=== PATIENT | female | born 1975 | race Caucasian/White ===

== ENCOUNTER 2018-06-12 09:13 | Day surgery (SDC) | payer OTHER, SELFPAY ==
[2018-06-10 10:32] VITALS: BMI 33.4
[2018-06-12] VITALS (8 sets, daily range): BP systolic 114–133; BP diastolic 73–89; PULSE 67–86; RESP 12–16; TEMP 36–36.8; O2SAT 95–100; BMI 33.4
--- NOTE | 2018-06-12 | PATH_ITS ---
[facility] Accession Number: [id number] . 01 Material submitted: . ENDOMETRIAL CURETTINGS . 02 Diagnosis: Endometrial Curetting: Proliferative endometrium with focally disordered maturation and changes of glandular and stromal breakdown, negative for atypia. [facility]/06/15/2018 . 02 Electronically signed: . John Reinoso MD, Pathologist NPI- [id number] . 01 Gross description: . Received one formalin-filled container labeled with the patient's name and labeled endometrial curettings. The specimen consists of approximately a 1 cc aggregate of tissue, mucoid material, and blood, which is filtered, wrapped, and entirely submitted in one cassette. (DC:[id number]) /FRR . 02 Pathologist provided ICD-10: N93.9 . 02 CPT . 779680 Performed at: 01 [facility] [address], [place], [place] [id number] MD Luis Garces MD Phone: [phone] Performed at: 02 [facility] [address] [place], [place] [id number] MD Sapphire Godwin MD Phone: [phone]
[2018-06-12] MEDS: LACTATED RINGERS 1,000 ML 100 ML IV (09:26)
[2018-06-12] MEDS: APREPITANT 40 MG CAPSULE PO (10:21)
--- NOTE | 2018-06-12 10:34 | PM.PREOP ---
Pre-operative Note Interval Note Pre-op Check: Yes History & Physical exam performed today by Physician Changes: No
--- NOTE | 2018-06-12 10:35 | PM.HP.1 ---
History of Present Illness Date Patient Seen: 06/12/18 Time Patient Seen: 10:36 Chief complaint: d&c hysteroscopy 67557 Narrative: Patient is a 42-year-old 2 para 2 with menorrhagia here for a D&C hysteroscopy and NovaSure endometrial ablation Patient History Medical History Abnormal uterine bleeding (Acute) Cardiomyopathy (Resolved ~2016) Preeclampsia (Resolved ~2016) Surgical History History of third molar tooth extraction Status post delivery (01/16/15) Status post delivery (08/01/16) Status post myomectomy (~2011) Status post tonsillectomy and adenoidectomy (~1990) Status post tubal ligation (02/07/17) Family & Social History Social History: household members family Tobacco & Substance use: Smoking Status Never smoker Meds Home Medications Medication Instructions Recorded Confirmed Type ibuprofen [Advil] 200 mg PO Q5HP PRN #0 08/12/16 06/10/18 History Allergies Allergy/AdvReac Type Severity Reaction Status Date / Time No Known Drug Allergies Allergy Unverified 06/10/18 10:35 Exam Vital Signs (past 8 hours): - 06/12/18 09:27 Temperature 97.4 F L Pulse Rate 86 Respiratory Rate 16 Blood Pressure 123/86 Pulse Oximetry 100 Oxygen Delivery Method Room Air Narrative Exam Narrative: HEENT: No thyromegaly, no anterior cervical or supraclavicular lymphadenopathy. Lungs:Clear to auscultation bilaterally, no wheezes. Cardiovascular: Regular rate and rhythm, no murmurs, rubs, or gallops Abdomen: Well-healed Pfannenstielscars. No hepatosplenomegaly. No masses palpable. External genitalia: Normal Vagina: Normal Cervix: Normal Bimanual exam: 7]Week size uterus. Mobile. Rectal: No masses. Assessment & Plan (1) Menorrhagia with regular cycle: Current visit: Yes Status: Acute Plan: Assessment/Plan Narrative: Assessment: 42-year-old 2 para 2 with menorrhagia Normal ultrasound normal endometrial biopsy Plan: D&C hysteroscopy NovaSure endometrial ablation The risks, benefits, and alternatives to the procedure were explained to the patient. The risks including bleeding, infection, and uterine perforation. She understands these risks and agrees to proceed. A full PAR-Q held and consent form was signed
--- NOTE | 2018-06-12 10:44 | SUR.OPER ---
Lithotomy on padded OR bed, head on pillow, arms secured on padded arm boards at <90 degrees abduction. Legs secured in padded yellow fins stirrups.
[2018-06-12] MEDS: HYDROMORPHONE 2 MG INJ 0.5 MG IV ×2 (11:41→11:59)
[2018-06-12] MEDS: OXYCODONE/ACETAMINOPHEN 5/325 TABLET 1 TAB PO (12:02)
--- NOTE | 2018-06-13 10:16 | PM.GYNOP.1 ---
Operative Date/Time/Diagnoses Date of procedure: 06/12/18 Time of procedure: 11:15 Pre-op diagnosis: Menorrhagia Post-op diagnosis: same Procedure: Procedures Operation Date: 06/12/18 10:45 Actual Procedures Side Surgeon p D&C Hysteroscopy w/Novasure Ablation Gabriella Gar MD Indications: Menorrhagia Surgeon: Gabriella Gar Anesthesia Type: General (LMA) Operative Notes Findings: 8 week size anteverted uterus Both fallopian tube ostia observed Thickened endometrial lining Closure Type: not applicable Specimen(s): endometrial curettings Estimated blood loss (mL): 5 Blood products transfused: none Procedure in detail: After informed consent was obtained, the patient was taken to the operating room where she was placed in the dorsal supine position. After adequate LMA general anesthesia was achieved, she was placed in the dorsal lithotomy position, and prepped and draped in the usual sterile fashion. A time-out was performed. A bivalve speculum was placed into the vagina and the anterior lip of the cervix grasped with a single-tooth tenaculum. The cervical os was sequentially dilated to the # 7 Hegar dilator. The hysteroscope passed easily into the endometrial cavity with the findings noted above. The hysteroscope was removed. Sharp curettage was performed yielding a moderate amount of endometrial curettings. The uterus was measured from the internal os to the fundus of the uterus and measured 5.5 cm. This was set on the NovaSure catheter as well as the generator. The NovaSure catheter passed easily into the endometrial cavity. The catheter was opened. The width was 4.2 cm. This was set on the generator. This indicated a power of 127 w. The cervix was capped, and the cavity assessment was performed and passed. The cycle was initiated and lasted 84 sec. The NovaSure catheter was closed, the cervix was then capped, and the catheter was removed from the uterus. Single-tooth tenaculum was removed from the anterior lip of the cervix. The bivalve speculum was removed from the vagina. Sponge, lap, and instrument counts were correct x2. The patient tolerated the procedure well, and was taken to PACU in stable condition. Complications: none Post-operative Condition: stable Disposition: PACU Plan for aftercare: Home after recovery
== END 2018-06-12 12:23 | disposition home or self-care (01) ==
PROVIDERS: Family Provider Obstetrics & Gynecology; PCP Obstetrics & Gynecology; Visit Provider Obstetrics & Gynecology
PROC: 0U5B8ZZ Destruction of Endometrium, Via Natural or Artificial Opening Endoscopic (ICD-10-PCS; CPT 58563; principal; 2018-06-12 10:45)
DX: N93.9 Abnormal uterine and vaginal bleeding, unspecified (principal)
CPT/HCPCS: 58563; J1100; J1170; J1885; J2250; J2405; J2704; J3010; J8501

== ENCOUNTER → 2019-02-09 09:44 | Outpatient (CLI) | payer OTHER, SELFPAY ==
--- NOTE | 2019-02-09 09:46 | DI.MG.S_ITS ---
BILATERAL DIGITAL SCREENING MAMMOGRAM 3D/2D WITH CAD: 02/09/2019 CLINICAL: Routine screening. Family history of breast cancer. Comparison is made to exam dated: 06/23/2017 mammogram - [facility]. There are scattered fibroglandular elements in both breasts. Current study was also evaluated with a Computer Aided Detection (CAD) system. No significant masses, calcifications, or other findings are seen in either breast. There has been no significant interval change. IMPRESSION: NEGATIVE There is no mammographic evidence of malignancy. A 1 year screening mammogram is recommended. This exam was interpreted at Station ID: [id number]. NOTE: For mammograms, a report in lay terms will be sent to the patient. Approximately 15% of breast malignancies will not be visualized mammographically. In the management of a palpable breast mass, a negative mammogram must not discourage biopsy of a clinically suspicious lesion. Electronically Signed By: Ariel cdae/zachary:02/09/2019 17:29:39 letter sent: Normal Exam ACR BI-RADS Category 1: Negative 3341F
== END ==
PROVIDERS: Visit Provider Obstetrics & Gynecology
DX: Z12.31 Encounter for screening mammogram for malignant neoplasm of breast (principal); Z80.3 Family history of malignant neoplasm of breast
CPT/HCPCS: 77063; 77067

== ENCOUNTER → 2019-04-16 07:58 | Outpatient (CLI) | payer OTHER, SELFPAY ==
[2019-04-16 09:13] LABS: Hematocrit 40.7 % (36-46); Mean Corpuscular HGB Conc 34.3 % (30-36); Mean Corpuscular Hemoglobin 31.5 PG (26-34); Mean Corpuscular Volume 91.7 fL (80-100); Platelet Count 284 X10^3/uL (150-400); Red Blood Cell Count 4.44 X10^6/uL (4.0-5.2); Red Cell Distribution Width 12.9 % (11.6-14.8); White Blood Cell Count 6.7 X10^3/uL (4.5-11.0)
[2019-04-16 09:32] LABS: Alanine Aminotransferase 22 IU/L (9-52); Albumin 4.4 g/dL (3.5-5.0); Albumin Globulin Ratio 1.4 (1.0-2.8); Alkaline Phosphatase 59 U/L (38-126); Aspartate Aminotransferase 25 IU/L (14-36); BUN Creatinine Ratio 15.7 (6-22); Bilirubin Total 0.6 mg/dL (0.2-1.3); Blood Urea Nitrogen 11 mg/dL (7-17); Calcium 9.4 mg/dL (8.4-10.2); Carbon Dioxide 28 mmol/L (22-32); Chloride 104 mmol/L (98-107); Cholesterol 178 mg/dL (140-199); Estimated Glomerular Filt Rate > 60.0 mL/min (>60); Globulin 3.1 g/dL (1.7-4.1); Glucose 98 mg/dL (70-100); HDL Cholesterol 70 mg/dL (40-60); HEMOLYSIS < 15 (0-50); LDL Cholesterol Calculated 96 mg/dL (<100); Potassium 3.5 mmol/L (3.4-5.1); Sodium 140 mmol/L (137-145); Total Protein 7.5 g/dL (6.3-8.2); Triglycerides 59 mg/dL (35-150)
== END ==
PROVIDERS: Visit Provider Nurse Practitioner Family
DX: Z00.00 Encounter for general adult medical examination without abnormal findings (principal); Z13.6 Encounter for screening for cardiovascular disorders
CPT/HCPCS: 36415; 80053; 80061; 85027

== ENCOUNTER → 2020-02-04 16:25 | Outpatient (CLI) | payer OTHER, SELFPAY ==
[2020-02-04 17:06] LABS: Add Manual Diff / Slide Review NO; Basophils Absolute Auto 100 /uL (0-100); Basophils Percent Auto 0.6 % (0-2); Eosinophils Absolute Auto 200 /uL (0-450); Eosinophils Percent Auto 1.7 % (2-4); Hemoglobin 13.5 g/dL (12.0-16.0); Lymphocytes Absolute Auto 2100 /uL (1100-4500); Lymphocytes Percent Auto 18.2 % (25-40); Mean Corpuscular HGB Conc 34.6 % (30-36); Mean Corpuscular Hemoglobin 31.3 PG (26-34); Mean Corpuscular Volume 90.3 fL (80-100); Monocytes Absolute Auto 900 /uL (0-900); Neutrophils Absolute Auto 8200 /uL (1500-7000); Neutrophils Percent Auto 71.5 % (50-75); Platelet Count 284 X10^3/uL (150-400); Red Blood Cell Count 4.32 X10^6/uL (4.0-5.2); Red Cell Distribution Width 13.1 % (11.6-14.8); White Blood Cell Count 11.4 X10^3/uL (4.5-11.0)
== END ==
PROVIDERS: PCP Nurse Practitioner Family; Referring Provider Nurse Practitioner Family; Visit Provider Nurse Practitioner Family
DX: R59.0 Localized enlarged lymph nodes (principal)
CPT/HCPCS: 36415; 85025

== ENCOUNTER → 2020-02-25 08:25 | Outpatient (CLI) | payer OTHER, SELFPAY ==
--- NOTE | 2020-02-25 08:26 | DI.MG.S_ITS ---
BILATERAL DIGITAL SCREENING MAMMOGRAM 3D/2D WITH CAD: 02/25/2020 CLINICAL: Routine screening. Family history of breast cancer. Comparison is made to exams dated: 02/09/2019 mammogram and 06/23/2017 mammogram - [facility]. There are scattered fibroglandular elements in both breasts. Current study was also evaluated with a Computer Aided Detection (CAD) system. No significant masses, calcifications, or other findings are seen in either breast. There has been no significant interval change. IMPRESSION: NEGATIVE There is no mammographic evidence of malignancy. A 1 year screening mammogram is recommended. This exam was interpreted at Station ID: [id number]. NOTE: For mammograms, a report in lay terms will be sent to the patient. Approximately 15% of breast malignancies will not be visualized mammographically. In the management of a palpable breast mass, a negative mammogram must not discourage biopsy of a clinically suspicious lesion. Electronically Signed By: Nasim Mantilla M.D., jr/zachary:02/25/2020 09:57:14 letter sent: Normal Exam ACR BI-RADS Category 1: Negative 3341F
== END ==
PROVIDERS: PCP Nurse Practitioner Family; Referring Provider Obstetrics & Gynecology; Visit Provider Obstetrics & Gynecology
DX: Z12.31 Encounter for screening mammogram for malignant neoplasm of breast (principal); Z80.3 Family history of malignant neoplasm of breast
CPT/HCPCS: 77063; 77067

== ENCOUNTER → 2020-11-06 08:30 | Outpatient (CLI) | payer OTHER, SELFPAY ==
[2020-11-06 09:18] LABS: Hematocrit 38.3 % (36-46); Hemoglobin 13.3 g/dL (12.0-16.0); Mean Corpuscular HGB Conc 34.7 % (30-36); Mean Corpuscular Hemoglobin 31.2 PG (26-34); Mean Corpuscular Volume 89.9 fL (80-100); Platelet Count 260 X10^3/uL (150-400); Red Blood Cell Count 4.25 X10^6/uL (4.0-5.2); White Blood Cell Count 6.1 X10^3/uL (4.5-11.0)
[2020-11-06 10:23] LABS: Alanine Aminotransferase 16 IU/L (<35); Albumin Globulin Ratio 1.3 (1.0-2.8); Alkaline Phosphatase 53 U/L (38-126); Aspartate Aminotransferase 21 IU/L (14-36); BUN Creatinine Ratio 21.7 (6-22); Bilirubin Total 0.5 mg/dL (0.2-1.3); Blood Urea Nitrogen 15 mg/dL (7-17); Calcium 9.6 mg/dL (8.4-10.2); Carbon Dioxide 27 mmol/L (22-32); Chloride 105 mmol/L (98-107); Estimated Glomerular Filt Rate > 60.0 mL/min (>60); Glucose 91 mg/dL (70-100); HEMOLYSIS < 15 (0-50); Sodium 138 mmol/L (137-145)
== END ==
PROVIDERS: PCP Nurse Practitioner Family; Referring Provider Nurse Practitioner Family; Visit Provider Nurse Practitioner Family
DX: Z00.00 Encounter for general adult medical examination without abnormal findings (principal)
CPT/HCPCS: 36415; 80053; 85027

== ENCOUNTER → 2021-03-03 08:27 | Outpatient (CLI) | payer OTHER, SELFPAY ==
--- NOTE | 2021-03-03 08:28 | DI.MG.S_ITS ---
BILATERAL DIGITAL SCREENING MAMMOGRAM 3D/2D WITH CAD: 03/03/2021 CLINICAL: Routine screening. Family history of breast cancer. Comparison is made to exams dated: 02/25/2020 mammogram, 02/09/2019 mammogram, and 06/23/2017 mammogram - [facility]. There are scattered fibroglandular elements in both breasts. Current study was also evaluated with a Computer Aided Detection (CAD) system. No significant masses, calcifications, or other findings are seen in either breast. There has been no significant interval change. IMPRESSION: NEGATIVE There is no mammographic evidence of malignancy. A 1 year screening mammogram is recommended. This exam was interpreted at Station ID: [id number]. NOTE: For mammograms, a report in lay terms will be sent to the patient. Approximately 15% of breast malignancies will not be visualized mammographically. In the management of a palpable breast mass, a negative mammogram must not discourage biopsy of a clinically suspicious lesion. Electronically Signed By: Henry langston/zachary:03/05/2021 07:18:02 letter sent: Normal Exam ACR BI-RADS Category 1: Negative 3341F
== END ==
PROVIDERS: PCP Nurse Practitioner Family; Referring Provider Obstetrics & Gynecology; Visit Provider Obstetrics & Gynecology
DX: Z12.31 Encounter for screening mammogram for malignant neoplasm of breast (principal); Z80.3 Family history of malignant neoplasm of breast
CPT/HCPCS: 77063; 77067

== ENCOUNTER → 2022-11-21 10:30 | Outpatient (CLI) | payer OTHER, SELFPAY ==
[2022-11-21 10:50] LABS: Appearance Urine UA CLEAR; Bilirubin Urine UA NEGATIVE (NEGATIVE); Color Urine UA YELLOW; Glucose Urine UA NEGATIVE (Negative); Ketones Urine UA NEGATIVE (NEGATIVE); Leukocyte Esterase Urine UA NEGATIVE (NEGATIVE); Nitrite Urine UA NEGATIVE (Negative); Occult Blood Urine UA 2+ (Negative); Protein Urine UA NEGATIVE (Negative); Specific Gravity Urine UA 1.015 (1.000-1.035); Urobilinogen Urine UA 0.2 E.U./dL (0.2)
[2022-11-21 11:36] LABS: Bacteria Urine Many (>30); Culture Indicated Urine Cult Not Indicated; RBC Urine 1-5/HPF (0-5/HPF); Squamous Epithelial Cell Urine 0-1 /HPF (0-5/HPF); WBC Urine 1-5/HPF (0-5/HPF)
== END ==
PROVIDERS: PCP Registered Nurse Diabetes Educator; Referring Provider Obstetrics & Gynecology; Visit Provider Obstetrics & Gynecology
DX: N39.0 Urinary tract infection, site not specified (principal)
CPT/HCPCS: 81003; 81015

== ENCOUNTER 2024-02-03 09:37 | Day surgery (SDC) | payer OTHER, SELFPAY ==
[2024-02-03 09:57] VITALS: BP 122/78; PULSE 71; RESP 14; TEMP 36.3; O2SAT 100
[2024-02-03] MEDS: LACTATED RINGERS 1,000 ML 42 ML IV (10:04)
[2024-02-03] MEDS: ONDANSETRON 4 MG/2 ML INJ IV (10:27)
--- NOTE | 2024-02-03 10:34 | PM.HP.1 ---
History of Present Illness History of Present Illness Date Patient Seen: 02/03/24 Time Patient Seen: 10:34 Chief complaint: [facility] Narrative: grandmother of colon cancer. Pt has no symptoms. This is her first colon cancer screening [facility] Medical History Abnormal Pap smear of cervix (~2014) Abnormal uterine bleeding Acne (~1989) Allergies (~1989) BCC (basal cell carcinoma of skin) Cardiomyopathy (~2016) Chicken pox Fibroids (~2011) Folliculitis Foot pain (~2017) Heavy menstrual period (~1991) Human papilloma virus (~2013) Lymphadenopathy of right cervical region Painful menstrual periods PMDD (premenstrual dysphoric disorder) Preeclampsia (~2016) Seasonal allergic rhinitis (1989) Surgical History Anesthesia History of third molar tooth extraction Status post delivery (01/16/15) Status post delivery (08/01/16) Status post endometrial ablation (~2017) Status post myomectomy (~2011) Status post tonsillectomy and adenoidectomy (~1990) Status post tubal ligation (02/07/17) Family History Father Diabetes mellitus Mother Uterine cancer Grandmother Cancer Grandfather Cancer Chronic lymphocytic leukemia Grandmother Colon cancer Social History household members: family Smoking Status: Never smoker second hand exposure: No alcohol intake: current substance use type: does not use Meds Home Medications and Allergies Home Medications Medication Instructions Recorded Confirmed Type clindamycin phosphate 1 % topical 1 applic topical DAILY #60 mL 03/14/21 02/03/24 Rx solution aluminum chloride 20 % topical 1 applic topical 2XW PRN 03/18/23 02/03/24 Rx solution (Drysol) hyperhidrosis #35 mL loratadine-pseudoephedrine ER 10 1 tab PO DAILY #90 tabs 03/18/23 02/03/24 Rx mg-240 mg tablet,extended [id number] (Claritin-D 24 Hour) rhubarb root extract 4 mg tablet mg PO 03/18/23 03/18/23 History (Estroven Complete Menopause Relief) Allergies Allergy/AdvReac Type Severity Reaction Status Date / Time escitalopram AdvReac Intermediate irritibilit Verified 03/18/23 16:38 y Review of Systems Review of Systems ROS: Yes All systems reviewed with the patient and are negative except as otherwise documented Exam Vital Signs (past 8 hours): - 02/03/24 09:57 Temperature 97.3 F L Pulse Rate 71 Respiratory Rate 14 Blood Pressure 122/78 Pulse Oximetry 100 Oxygen Delivery Method Room Air Oxygen Delivery Method Room Air Const General: cooperative, healthy appearing and comfortable Nutritional Appearance: average body habitus [facility] Head: normocephalic and atraumatic Eyes General: appearance normal, both eyes and all related structures Neck Neck: trachea midline Resp Effort & Inspection: normal respiratory effort and able to speak in complete sentences Cardio Rate: regular rate Rhythm: regular rhythm GI Palpation: soft and No tender Skin General: turgor normal and No atrophy Neuro General: patient alert, patient awake and patient oriented x3 Cognition: normal cognition Psych Mental Status: mental status grossly normal Affect: normal affect Judgment: judgment good Assessment & Plan Assessment & Plan narrative: Colon cancer screening with colonoscopy and anesthesia Time-Based Coding :: [TOTAL MINUTES] spent with patient and on the chart (including review of chart, obtaining history, exam, reviewing outside data, placing orders, documenting exam and treatment plan, and counseling patient) on [DATE].
--- NOTE | 2024-02-03 11:22 | PM.OP.COLON ---
Operative Date/Time/Diagnoses Date of procedure: 02/03/24 Time of procedure: 11:22 Pre-op diagnosis: Colon cancer screening Post-op diagnosis: same Procedure & Clinicians Study performed: Colonoscopy with anesthesia Same procedure as scheduled: Yes Indications: Colon cancer screening Surgeon: Rosanne Rodriguez Procedure Notes Procedure in detail: Preop diagnosis: Colon cancer screening Postop diagnosis: Same Operative procedure: Colonoscopy with anesthesia Surgeon: Jessica Rodriguez MD Findings: Normal colonoscopy. No polyps, no diverticulosis Procedure: Patient placed in lateral position. Rectal exam performed showing normal tone no masses. Colonoscope inserted into the rectum and advanced to ileocecal valve with minimal difficulty. Insufflation extraction of the scope and the above findings. Retroflex was included in the rectum. Impression: Normal colonoscopy. No polyps, no diverticulosis. Plan: Repeat colonoscopy in 10 years unless otherwise indicated by change in clinical condition Specimen(s): none sent Complications: none Post-procedure Recommendations: Colonoscopy in 10 years Follow up: as needed Disposition: PACU
[2024-02-03 11:24] VITALS: BP 107/61; PULSE 88; RESP 17; TEMP 36.6; O2SAT 100
[2024-02-03 11:29] VITALS: BP 127/92; PULSE 80; RESP 14; O2SAT 98
[2024-02-03 11:35] VITALS: BP 120/82; PULSE 71; RESP 14; O2SAT 99
[2024-02-03 11:39] VITALS: BP 121/58; PULSE 68; RESP 16; O2SAT 100
== END 2024-02-03 11:49 | disposition home or self-care (01) ==
PROVIDERS: PCP Registered Nurse Diabetes Educator; Referring Provider Surgery; Visit Provider Surgery
PROC: 0DJD8ZZ Inspection of Lower Intestinal Tract, Via Natural or Artificial Opening Endoscopic (ICD-10-PCS; CPT 45378; principal; 2024-02-03 10:30)
DX: Z12.11 Encounter for screening for malignant neoplasm of colon (principal)
CPT/HCPCS: 45378; J2405; J2704

== ENCOUNTER → 2024-03-20 11:05 | Outpatient (CLI) | payer OTHER, SELFPAY ==
--- NOTE | 2024-03-20 11:06 | DI.MG.S_ITS ---
BILATERAL DIGITAL SCREENING MAMMOGRAM 3D/2D WITH CAD: 03/20/2024 CLINICAL: Routine screening. Family history of breast cancer. Comparison is made to exams dated: 03/03/2021 mammogram, 02/25/2020 mammogram, and 02/09/2019 mammogram - [facility]. There are scattered areas of fibroglandular density (category b / 25%-50% glandular tissue). Current study was also evaluated with a Computer Aided Detection (CAD) system. No significant masses, calcifications, or other findings are seen in either breast. There has been no significant interval change. IMPRESSION: NEGATIVE There is no mammographic evidence of malignancy. A 1 year screening mammogram is recommended. Based on the Tyrer Cuzick model (a risk assessment model) the patient's lifetime risk is 15.0% and her 10 year risk is 3.1%. According to the ACR, ACS, and NCCN guidelines, an annual breast MRI exam along with mammogram is recommended if the patient's lifetime risk is 20% or greater. This exam was interpreted at Station ID: [id number]. NOTE: For mammograms, a report in lay terms will be sent to the patient. Approximately 15% of breast malignancies will not be visualized mammographically. In the management of a palpable breast mass, a negative mammogram must not discourage biopsy of a clinically suspicious lesion. Electronically Signed By: Huong soliz/zachary:03/22/2024 12:38:16 letter sent: Normal Exam ACR BI-RADS Category 1: Negative 3341F
== END ==
LOC: MAMMO 11:05
PROVIDERS: PCP Registered Nurse Diabetes Educator; Referring Provider Registered Nurse Diabetes Educator; Visit Provider Registered Nurse Diabetes Educator
DX: Z12.31 Encounter for screening mammogram for malignant neoplasm of breast (principal); Z80.3 Family history of malignant neoplasm of breast
CPT/HCPCS: 77063; 77067

== ENCOUNTER → 2025-03-29 11:27 | Outpatient (CLI) | payer OTHER, SELFPAY ==
--- NOTE | 2025-03-29 11:28 | DI.MG.S_ITS ---
MM screening mammo BI: 03/29/2025. BI-RADS: 1 CLINICAL: 49-year old female for bilateral screening mammogram. Tyrer-Cuzick lifetime risk of 9.6%. No personal or first-degree family history of breast cancer. PRIOR EXAMS 03/20/2024, 03/03/2021, 02/25/2020, 02/09/2019. MAMMOGRAPHY TECHNIQUE: 2D and 3D (tomosynthesis) digital mammographic views obtained, with additional images as needed for full coverage. Current study was also evaluated with a Computer Aided Detection (CAD) system. DENSITY B. There are scattered areas of fibroglandular density. MAMMOGRAPHY FINDINGS Bilateral: No suspicious mass, asymmetry, microcalcification, or other abnormality seen. IMPRESSION: * No evidence of malignancy. RECOMMENDATIONS Bilateral * Annual screening mammography. OVERALL ASSESSMENT CATEGORY BI-RADS-1: Negative. The [employer] recommends annual screening mammography beginning at age 40 for women with average risk of breast cancer. ELECTRONICALLY SIGNED: Ju Chen M.D. on 03/29/2025 at 11:32:35 PM PT Interpreting Station ID: [id number]
[2025-03-29 12:08] LABS: Hematocrit 40.8 % (36-46); Hemoglobin 14.0 g/dL (12.0-16.0); Mean Corpuscular HGB Conc 34.4 % (30-36); Mean Corpuscular Hemoglobin 31.2 PG (26-34); Mean Corpuscular Volume 90.8 fL (80-100); Platelet Count 307 X10^3/uL (150-400)
[2025-03-29 12:50] LABS: Alanine Aminotransferase 16 IU/L (<35); Albumin 4.4 g/dL (3.5-5.0); Albumin Globulin Ratio 1.5 (1.0-2.8); Alkaline Phosphatase 59 U/L (38-126); Blood Urea Nitrogen 14 mg/dL (7-17); Calcium 9.2 mg/dL (8.4-10.2); Carbon Dioxide 25 mmol/L (22-32); Chloride 103 mmol/L (98-107); Cholesterol 216 mg/dL (140-199); Estimated Glomerular Filt Rate > 60 mL/min (>60); Globulin 3.0 g/dL (1.7-4.1); Glucose 98 mg/dL (70-99); HDL Cholesterol 97 mg/dL (40-60); HEMOLYSIS < 15 (0-50); Potassium 4.1 mmol/L (3.4-5.1); Sodium 135 mmol/L (137-145); Total Protein 7.4 g/dL (6.3-8.2); Triglycerides 72 mg/dL (35-150)
[2025-03-29 13:11] LABS: Free T4, Direct Thyroxine 1.19 ng/dL (0.78-2.19)
[2025-03-29 13:25] LABS: Thyroid Stimulating Hormone 0.905 uIU/mL (0.47-4.68)
[2025-03-29 15:21] LABS: Vitamin D 25 Hydroxy (D3) 43.5 ng/mL (30.0-100.0)
== END ==
LOC: MAMMO 11:28
PROVIDERS: PCP Registered Nurse Diabetes Educator; Referring Provider Registered Nurse Diabetes Educator; Visit Provider Registered Nurse Diabetes Educator
DX: Z12.31 Encounter for screening mammogram for malignant neoplasm of breast (principal); R53.83 Other fatigue
CPT/HCPCS: 77063; 77067; 80053; 80061; 82306; 84439; 84443; 85027

== ENCOUNTER 2025-05-12 11:42 | Emergency (ER) | payer OTHER, SELFPAY ==
--- NOTE | 2025-05-12 11:59 | EKG_ITS ---
[facility]
[2025-05-12 12:00] VITALS: BP 138/91; PULSE 77; RESP 16; TEMP 36.6; O2SAT 100; BMI 33.3
--- NOTE | 2025-05-12 12:04 | ED_ITS ---
<Statement entered by Armando Cardona, DO - 05/13/25 07:49>
--- NOTE | 2025-05-12 12:04 | ED.ARRPALP ---
HPI - Arrhythmia/Palpitations General Chief Complaint: Chest Pain Stated Complaint: Heart pounding for 2 days Time Seen by Provider: 05/12/25 12:04 History of Present Illness HPI narrative: Ms. Lopez is a pleasant 49-year-old female with a past medical history of hypertension, cardiomyopathy who presents to the emergency department for heart pounding x2 days. Patient reports well doing yoga 2 days ago she started developing left-sided chest pounding/palpitations that has been persistent. Reports that this is happened in the past when she had severe anxiety however it typically goes away and it has not. She denies shortness of breath, fevers, chills, coughing, abdominal pain, nausea, vomiting, diarrhea, constipation, dysuria. She denies history of VTE or family history of cardiac disease. Related Data Home Medications ?Medication ?Instructions ?Recorded ?Confirmed rhubarb root extract 4 mg tablet mg PO 03/18/23 03/29/25 (Estroven Complete Menopause Relief) omega 9-fai-for-fish oil 1,000 mg 1 cap PO BID 03/29/25 03/29/25 (120 mg-180 mg) capsule (Fish Oil) Previous Rx's ?Medication ?Instructions ?Recorded clindamycin phosphate 1 % topical 1 applic topical DAILY #60 mL 03/14/21 solution aluminum chloride 20 % topical 1 applic topical 2XW PRN 03/29/25 solution (Drysol) hyperhidrosis #35 mL loratadine-pseudoephedrine ER 10 1 tab PO DAILY #90 tabs 03/29/25 mg-240 mg tablet,extended [id number] (Claritin-D 24 Hour) Allergies Allergy/AdvReac Type Severity Reaction Status Date / Time escitalopram AdvReac Intermediate irritibilit Verified 03/29/25 10:31 y Review of Systems Review of Systems ROS Unobtainable: All systems reviewed & are unremarkable except as noted in HPI and below Patient History Medical History BCC (basal cell carcinoma of skin) Folliculitis Lymphadenopathy of right cervical region Seasonal allergic rhinitis (1989) PMDD (premenstrual dysphoric disorder) Acne (~1989) Allergies (~1989) Foot pain (~2017) Chicken pox Painful menstrual periods Human papilloma virus (~2013) Heavy menstrual period (~1991) Fibroids (~2011) Abnormal Pap smear of cervix (~2014) Abnormal uterine bleeding Preeclampsia (~2016) Cardiomyopathy (~2016) Surgical History Anesthesia Status post endometrial ablation (~2017) Status post tubal ligation (02/07/17) Status post delivery (08/01/16) Status post myomectomy (~2011) History of third molar tooth extraction Status post tonsillectomy and adenoidectomy (~1990) Status post delivery (01/16/15) Family History Father Diabetes mellitus Mother Uterine cancer Grandmother Cancer Grandfather Cancer Chronic lymphocytic leukemia Grandmother Colon cancer Social History marital status: number of children: 2 household members: spouse and children lives independently: Yes caregiver/support person: No housing: house pets and animals: Yes education level: master's degree occupational status: employed current occupational exposures/hazards: No delmer/oriental orthodox: Quaker special delmer needs: No leisure activities: exercise and reading seatbelt use: always helmet use: Yes water heater temp set < 120 deg: Yes working smoke detector in home: Yes fire extinguisher in home: Yes carbon monox detector in home: No firearms in home: Yes firearms unloaded and locked: Yes do you feel safe at home: Yes second hand exposure: No alcohol intake: current substance use type: does not use during the past year weight has: remained stable well-balanced diet: daily or most days daily servings fruits/ve-4 caffeine: Yes eating out: rarely or never Type(s) of exercise: aerobic, regular exercise and running frequency: 5-6 times per week duration: 30-45 minutes/day alcohol intake frequency: a few times a week Exam Narrative Exam Narrative: GENERAL: 49 year old patient appears stated age. Well-developed patient, in no acute distress. HEAD: Atraumatic. Normocephalic. EYES: No scleral icterus. No injection or drainage. NECK: Trachea midline. Cervical ROM intact. CARDIOVASCULAR: Regular rate and rhythm. RESPIRATORY: ?Nonlabored respirations. ?Speaking in clear, full sentences. ?Clear to auscultation. Breath sounds equal bilaterally. No wheezes, rales, or rhonchi. ? GASTROINTESTINAL: Abdomen soft, non-tender, nondistended. EXTREMITIES: No LE edema. BACK: Nontender without deformity or crepitance. No flank tenderness. NEURO: AOx3. ?Clear speech. ?Moves all 4 extremities appropriately. SKIN: No rash or erythema of visible areas Initial Vital Signs Initial Vital Signs: Vital Signs Temperature 97.8 F 05/12/25 12:00 Pulse Rate 77 05/12/25 12:00 Respiratory Rate 16 05/12/25 12:00 Blood Pressure 138/91 H 05/12/25 12:00 Pulse Oximetry 100 05/12/25 12:00 Oxygen Delivery Method Room Air 05/12/25 12:00 Scores HEART Score Heart Score history: Slightly Suspicious Heart Score EKG: Normal Heart Score Age: 45-64 years old Heart Score risk factors: 1-2 risk factors Heart Score troponin: < or = to normal limit Heart Score Total: 2 PERC Score Age greater than or equal to 50 years: No Heart rate greater than or equal to 100 bpm: No Room Air O2 Sat less than 95%: No Unilateral leg swelling: No Recent trauma or surgery: No Hemoptysis: No Prior PE or DVT: No Hormone Use: No Total PERC Score: 0 Course Orders Ordered: ED Orders 05/12/25 12:06 CK [Creatine Kinase] Stat Complete Blood Count AUTO DIFF Stat Comprehensive Metabolic Panel Stat Lipase Stat Magnesium Stat NT-proBNP (BNP-Adult 18+) Stat TSH [Thyroid Stimulating Hormone] Stat Troponin I Stat 05/12/25 12:20 XR chest 1V Stat EKG-12 Lead Stat 05/12/25 12:33 Urine Microscopic Stat Discontinued Medications Aspirin (Aspirin 81 Mg Chew Tab) 324 mg PO NOW ONE Stop: 05/12/25 12:21 Last Admin: 05/12/25 12:29 Dose: 324 mg Documented By: SHABANA Vital Signs Vital signs: Vital Signs - 8 hr 05/12/25 12:00 05/12/25 14:45 Temperature 97.8 F Pulse Rate 77 80 Respiratory Rate 16 18 Blood Pressure 138/91 H 134/78 Pulse Oximetry 100 96 Oxygen Delivery Method Room Air Room Air MDM - Arrhythmia/Palpitations Medical Records Attestation: I reviewed the patient's medical records. Lab Data 05/12/25 12:06 05/12/25 12:06 Labs: Lab Results 05/12/25 05/12/25 Range/Units 12:06 12:33 WBC 6.6 (4.5-11.0) X10^3/uL RBC 4.29 (4.0-5.2) X10^6/uL Hgb 13.6 (12.0-16.0) g/dL Hct 39.3 (36-46) % MCV 91.6 (80-100) fL MCH 31.6 (26-34) PG MCHC 34.5 (30-36) % RDW 12.9 (11.6-14.8) % Plt Count 298 (150-400) X10^3/uL Neut % (Auto) 65.4 (50-75) % Lymph % (Auto) 23.0 L (25-40) % Mclean % (Auto) 8.5 (3-14) % Eos % (Auto) 2.1 (2-4) % Baso % (Auto) 1.0 (0-2) % Neut # (Auto) 4300 (3524-6710) /uL Lymph # (Auto) 1500 (9212-9987) /uL Mclean # (Auto) 600 (0-900) /uL Eos # (Auto) 100 (0-450) /uL Baso # (Auto) 100 (0-100) /uL Sodium 136 L (137-145) mmol/L Potassium 3.8 (3.4-5.1) mmol/L Chloride 104 (98-107) mmol/L Carbon Dioxide 25 (22-32) mmol/L BUN 13 (7-17) mg/dL Creatinine 0.78 (0.52-1.04) mg/dL Estimated GFR > 60 (>60) mL/min BUN/Creatinine Ratio 16.7 (6-22) Glucose 86 (70-99) mg/dL Calcium 8.8 (8.4-10.2) mg/dL Magnesium 2.1 (1.6-2.3) mg/dL Total Bilirubin 0.3 (0.2-1.3) mg/dL AST 26 (14-36) IU/L ALT 18 (<35) IU/L Alkaline Phosphatase 61 (38-126) U/L Total Creatine Kinase 37 (30-135) U/L Troponin I < 0.012 (0.01-0.034) ng/mL NT-Pro-B Natriuret Pep 22 (<125) pg/mL Total Protein 7.6 (6.3-8.2) g/dL Albumin 4.3 (3.5-5.0) g/dL Globulin 3.3 (1.7-4.1) g/dL Albumin/Globulin Ratio 1.3 (1.0-2.8) Lipase 77 (23-300) U/L TSH 1.45 (0.47-4.68) uIU/mL Urine RBC 0-1/hpf (0-5/HPF) Urine WBC None seen (0-5/HPF) Ur Squamous Epith Cells 1-5 /hpf (0-5/HPF) Urine Bacteria Few (2-10) H (None) Ur Culture Indicated? Cult not indicated Vol Urine Centrifuged 10ml (spun) Urine Dip Bedside Urine Glucose Negative Bedside Urine Bilirubin - Negative Bedside Urine Ketone - Negative Urine Specific Lamar 1.000 Bedside Urine Occult Blood +/- Bedside Urine pH 7.0 Bedside Urine Protein - Negative Bedside Urine Urobilinogen - Negative Bedside Urine Nitrite - Negative Bedside Urine Leukocytes - Negative Esterase Imaging Data Chest x-ray: Radiologist's Impresson: PROCEDURE: XR CHEST 1V INDICATIONS: palpitations TECHNIQUE: One view of the chest was acquired. COMPARISON: None. FINDINGS: Surgical changes and devices: None. Lungs and pleura: Lungs are clear. No pleural effusions or pneumothorax. Mediastinum: Mediastinal contours appear normal. Heart size is normal. Bones and chest wall: No suspicious bony lesions. Overlying soft tissues appear unremarkable. IMPRESSION: No acute cardiopulmonary abnormality is seen. Dictated by: Kishore Qiu M.D. on 05/12/2025 at 13:14 Approved by: Kishore Qiu M.D. on 05/12/2025 at 13:15 MDM Narrative Medical decision making narrative: 49-year-old female with a past medical history of hypertension, cardiomyopathy who presents to the emergency department for heart pounding x2 days. Differential diagnosis includes but is not limited to cardiac arrhythmia, hyperthyroidism, pneumonia, bronchitis, ACS, etc. On exam patient is in no acute distress, nontoxic-appearing, all vital signs within normal limits. ECG reveals normal sinus rhythm with rate of 88 beats per minute, QTC 454, no ST segment elevations. She has been experiencing palpitations for the last 2 days not associated with the pain or shortness of breath. No risk factors for PE. She does have history of cardiomyopathy. Chest pain order set initiated. Chest x-ray reveals no acute cardiopulmonary abnormality. Labs reveal negative/undetectable troponin, negative BNP 22. Heart score 2. Normal LFTs. Normal TSH 1.45. Normal WBC count 6.6, hemoglobin 13.6, sodium 136, potassium 3.8, BUN 13, creatinine 0.78. TSH 1.45. UA with contamination. Printed and discussed results with the patient. This time discussed reassuring workup and advised to follow up with PCP for further evaluation, possible Zio patch. Patient feels good with this plan, recommended rest, hydration, strict ER return precautions. Patient verbalized understanding all information is happy with the plan. She is stable for discharge home all VS WNL. Discharge Plan Departure Patient Disposition: Home Clinical Impression: Heart palpitations Instructions: DI for Palpitations Activity Restrictions/Additional Instructions: Dear Ms. Lopez, Thank you for coming to the emergency department. Today, we completed a work up for chest pain/palpitations. Sometimes, we do not always find the cause for your symptoms in one ER visit. The findings on your exam today and on your blood work and/or imaging is reassuring. At this time, it is not 100% certain what is causing your symptoms, but we feel you can be discharged from the emergency department. It is possible this may worsen or you may get better. Please, if you get worse or your symptoms change, return to the emergency department. Otherwise, please follow up with your primary care doctor. Please follow up with your primary care doctor within the next 2-3 days for ER follow-up. (If you do not have a PCP you can call [phone]. ?to schedule an appointment with an [facility] Primary Care Provider) IF YOU DEVELOP ANY NEW OR WORSENING SYMPTOMS, RETURN TO THE ER! Please read the attached instructions, they highlight more specific treatments and interventions for you at home. Thank you for letting me participate in your care, Nedra Arnold PA-C Prescriptions: No Action clindamycin phosphate 1 % solution 1 applic TOP DAILY Qty: 60 0RF Estroven Cmplt Menopause Rlf 4 mg tablet PO omega 3-uun-qbt-fish oil [Fish Oil] 1,000 (120-180) mg capsule 1 cap PO BID Drysol 20 % solution 1 applic TOP 2XW PRN (Reason: hyperhidrosis) Qty: 35 11RF Claritin-D 24 Hour 10-240 mg tablet extended release 24 hr 1 tab PO DAILY Qty: 90 3RF Referrals: Hema Montoya ARNP [Primary Care Provider, Medical] Stand Alone Forms: Patient Portal/API, Work Release Note
--- NOTE | 2025-05-12 12:20 | DI.RAD.S_ITS ---
PROCEDURE: XR CHEST 1V
[2025-05-12] MEDS: ASPIRIN 81 MG CHEW TAB 324 MG PO (12:29)
[2025-05-12 12:32] LABS: Add Manual Diff / Slide Review NO; Hematocrit 39.3 % (36-46); Hemoglobin 13.6 g/dL (12.0-16.0); Lymphocytes Absolute Auto 1500 /uL (1100-4500); Mean Corpuscular HGB Conc 34.5 % (30-36); Mean Corpuscular Hemoglobin 31.6 PG (26-34); Mean Corpuscular Volume 91.6 fL (80-100); Platelet Count 298 X10^3/uL (150-400)
[2025-05-12 12:36] LABS: Alanine Aminotransferase 18 IU/L (<35); Albumin 4.3 g/dL (3.5-5.0); Albumin Globulin Ratio 1.3 (1.0-2.8); Alkaline Phosphatase 61 U/L (38-126); Blood Urea Nitrogen 13 mg/dL (7-17); Calcium 8.8 mg/dL (8.4-10.2); Carbon Dioxide 25 mmol/L (22-32); Chloride 104 mmol/L (98-107); Creatine Kinase 37 U/L (30-135); Estimated Glomerular Filt Rate > 60 mL/min (>60); Globulin 3.3 g/dL (1.7-4.1); Glucose 86 mg/dL (70-99); HEMOLYSIS < 15 (0-50); Lipase 77 U/L (23-300); Magnesium 2.1 mg/dL (1.6-2.3); Potassium 3.8 mmol/L (3.4-5.1); Sodium 136 mmol/L (137-145); Total Protein 7.6 g/dL (6.3-8.2)
[2025-05-12 12:47] LABS: NT-proBNP (BNP-Adult 18+) 22 pg/mL (<125); Troponin I < 0.012 ng/mL (0.01-0.034)
[2025-05-12 13:02] LABS: Culture Indicated Urine Cult Not Indicated
[2025-05-12 13:06] LABS: Thyroid Stimulating Hormone 1.45 uIU/mL (0.47-4.68)
[2025-05-12 14:45] VITALS: BP 134/78; PULSE 80; RESP 18; O2SAT 96
== END 2025-05-12 14:46 | disposition home or self-care (01) ==
PROVIDERS: Emergency Provider Physician Assistant; PCP Registered Nurse Diabetes Educator
DX: R00.2 Palpitations (principal)
CPT/HCPCS: 71045; 80053; 81003; 81015; 82550; 83690; 83735; 83880; 84443; 84484; 85025; 93005; 99283; 99284

== ENCOUNTER → 2025-05-30 15:20 | Outpatient (CLI) | payer OTHER, SELFPAY ==
--- NOTE | 2025-05-30 15:26 | DI.ECHO.S_ITS ---
[facility]+ [facility] : : [address] : : [place] : : [id number] : : Phone: [phone] Echocardiogram Report + + :Name: ALMA POWELL Study Date: 05/30/2025 Height: 65 in : :[facility] ReadingLocation: Weight: 200 lb : : Gender: Female BSA: 2.0 m2 : :: 1975 Age: 49 yrs BP: 120/82 mmHg: :Reason For Study: Palpitations : :Ordering Physician: CARMEN, : :TIFFANY Performed By: Tracy Kaiser : :Referring: TIFFANY MORALES : + + Interpretation Summary Normal sinus rhythm. Normal LV size and wall thickness; EF is 50-55%. Normal chamber sizes. No significant valve abnormalities. Compared to prior echo 11/06/2016 no changes have occurred. Procedure: A two-dimensional transthoracic echocardiogram with color flow and Doppler was performed. The study quality was technically adequate. Comparison is made with the echocardiogram of 11-06-16. The heart rate ranged between 75-79 bpm during the study. Left Ventricle: The left ventricle is normal in size and wall thickness. The ejection fraction is estimated to be 50-55%. Normal diastolic function. Right Ventricle: The right ventricle grossly appears normal in size with probable normal systolic function. Atria: The left atrial size is normal. Right atrial size is normal. The interatrial septum grossly appears intact with no obvious evidence for an atrial septal defect. Mitral Valve: The mitral valve is normal in structure and function. There is no mitral regurgitation noted. Aortic Valve: The aortic valve is trileaflet. The aortic valve opens well. There is no aortic valve stenosis. No aortic regurgitation is present. Tricuspid Valve: The tricuspid valve leaflets are thin and pliable. There is a trace or physiologic amount of tricuspid regurgitation. The right ventricular systolic pressure is estimated to be at least 29 mmHg based on an estimated right atrial pressure of 8 mm Hg. Pulmonic Valve: The pulmonic valve is normal in structure and function. There is a trace or physiologic amount of pulmonic regurgitation. Great Vessels: The aortic root is normal size. The ascending aorta is normal in size. The aortic arch is normal in size. The IVC is dilated (diameter is greater than 2.1 cm) yet it collapses greater than 50% with a sniff. This suggests a right atrial pressure of 8 mm Hg. Pericardium/ Pleura There is no pericardial effusion. There is no pleural effusion. MMode/2D Measurements & Calculations LVIDd: 5.0 cm LVOT diam: 2.1 cm LVIDs: 3.4 cm Ao root diam: 2.8 cm FS: 32.1 % asc Aorta Diam: 2.6 cm EPSS: 0.51 cm IVSd: 0.87 cm LVPWd: 0.74 cm LV capellan. diameter/BSA (cm/m^2): 2.5 LV sys. diameter/BSA (cm/m^2): 1.7 LA A2 area: 17.4 cm2 RA long axis: 5.0 cm LA A4 area: 18.7 cm2 RA area: 15.2 cm2 LA length (vol): 5.0 cm RA vol: 39.2 ml LA vol: 55.0 ml RA : 19.8 ml/m2 LA vol index: 27.8 ml/m2 IVC diam: 2.2 cm RVD1 (basal): 2.8 cm TAPSE: 2.4 cm Doppler Measurements & Calculations Ao V2 max: 132.6 cm/sec LVOT Max Antonio: 97.4 cm/sec Ao V2 mean: 92.5 cm/sec LV V1 max P.8 mmHg Ao max P.0 mmHg LV V1 VTI: 20.1 cm Ao mean P.9 mmHg ALEJO(I,D): 2.3 cm2 Ao V2 VTI: 28.8 cm ALEJO(V,D): 2.5 cm2 sev ratio: 0.70 ALEJO indexed to BSA (cm^2/m^2): 1.2 MV E max antonio: 85.9 cm/sec TR max antonio: 229.6 cm/sec MV A max antonio: 61.9 cm/sec TR max P.1 mmHg MV E/A: 1.4 PA V2 max: 104.0 cm/sec Med Peak E' Antonio: 12.9 cm/sec PA V2 mean: 68.9 cm/sec E/E' med: 6.7 PA mean P.3 mmHg Lat Peak E' Antonio: 12.3 cm/sec PA pr(Accel): 3.2 mmHg E/E' lat: 7.0 E/e' average: 6.8 MV dec time: 0.18 sec SV(LVOT): 67.0 ml Electronically signed by: Nicolasa Baltazar M.D. on Reading Physician:05/30/2025 11:10 PM
--- NOTE | 2025-05-30 15:28 | DI.NM.S_ITS ---
PROCEDURE: NM EXERCISE TREADMILL NON NUC COMPARISON: None INDICATIONS: Atrial premature depolarization and palpitations FINDINGS: Rest ECG sinus rhythm 68 bpm. Rogelio protocol 6:41, maximum heart rate 163 bpm (95% peak predicted), peak blood pressure 182/80, 7.0 METS, JONO +17%. Exercise ECG sinus tachycardia, 1.5 to [address] segment depressions leads II, V4-V6, no arrhythmia. The patient did not report exercise-induced chest discomfort. IMPRESSION: Abnormal study. Exercise-induced ECG changes consistent with inducible ischemia. Normal hemodynamic response. Slightly reduced exercise capacity. Consider repeat exercise stress testing with imaging such as echocardiography. Dictated by: Kirti Ortiz D.O. on 05/30/2025 at 16:29 Approved by: Kirti Ortiz D.O. on 05/30/2025 at 16:46
== END ==
LOC: ECHO 15:25
PROVIDERS: PCP Registered Nurse Diabetes Educator; Referring Provider Physician Assistant; Visit Provider Physician Assistant
DX: I49.1 Atrial premature depolarization (principal); R00.2 Palpitations
CPT/HCPCS: 93017; 93306

== ENCOUNTER → 2025-06-01 05:05 | Outpatient (CLI) | payer OTHER, SELFPAY | LOC: CAR 05:06 | PROVIDERS: PCP Registered Nurse Diabetes Educator; Referring Provider Physician Assistant; Visit Provider Physician Assistant | DX: R00.2 Palpitations (principal) | CPT/HCPCS: 93242 ==